=== PATIENT | female | born 1945 | race Caucasian/White ===

== ENCOUNTER → 2019-10-20 | Outpatient (CLI) | payer MEDICARE, BC ==
[2013-08-14 00:36] VITALS: BP 133/80
[~2019-10-20] MED LIST: CALCIUM1 CAP; DUO-KAPS1 CAP PO; FISH OIL500 MG; LOVASTATIN10 MG PO; LUTEIN1 BEA; NATURE'S BLEND400 I1; OMEPRAZOLE10 MG PO; OSTEO BI-FLEX1 TAB PO; POTASSIUM20 MEQ; ST. JOSEPH81 M2 PO; TOE FUNGUS MED
== END ==
LOC: RAD 08:15
DX: C50.412 Malignant neoplasm of upper-outer quadrant of left female breast (principal); K76.0 Fatty (change of) liver, not elsewhere classified